=== PATIENT | female | born 1945 | race Caucasian/White ===

== ENCOUNTER 2021-04-11 14:35 | Outpatient (CLI) | payer MEDICARE, SELFPAY ==
--- NOTE | ~2021-04-11 | MM_ITS ---
EXAMINATION: MM screening [facility] BI w jarad HISTORY: Screening mammogram TECHNIQUE: Craniocaudal and mediolateral oblique 3-D tomosynthesis images were obtained and synthetic 2-D images were generated. CAD analysis was submitted and interpreted. COMPARISON: 09/19/2018, 09/13/2018, 01/24/2017 BREAST PARENCHYMAL COMPOSITION: There are scattered areas of fibroglandular density. FINDINGS: There is no evidence of suspicious mass, calcification, or architectural distortion to sugg est malignancy in either breast. There has been no suspicious interval change. IMPRESSION: 1. No mammographic evidence of malignancy. 2. Recommend routine screening mammography in one year. BI-RADS Category 1: Negative Reviewed, dictated and finalized at location A. ARY HISTORIAN
== END 2021-04-11 14:36 | disposition home or self-care (01) ==
LOC: ANHIMG 14:39
PROVIDERS: PCP Internal Medicine; Visit Provider Internal Medicine
DX: Z12.31 Encounter for screening mammogram for malignant neoplasm of breast (principal)
CPT/HCPCS: 77063; 77067

== ENCOUNTER → 2021-11-08 12:19 | Outpatient (CLI) | payer MEDICARE, SELFPAY ==
--- NOTE | ~2021-11-08 | MR_ITS ---
EXAMINATION: MR ankle RT wo con DATE: 11/08/2021 13:00 INDICATION: Right ankle pain TECHNIQUE: Magnetic resonance imaging (MRI) of the right ankle was performed without intravenous cont rast. Sequences included sagittal, coronal, and axial proton-density weighted fast spin echo without and with fat saturation. COMPARISON: None. FINDINGS: Medial ankle ligaments: Deep and superficial deltoid ligaments as well as the spring ligament are normal. Lateral ankle ligaments: The anterior and posterior inferior tibiofibular ligaments are normal. The anterior talofibular, calc aneofibular and posterior talofibular ligaments are normal. Tendons: Achilles tendon is normal. The peroneus longus and brevis tendons are normal. The tibialis anterior a nd extensor hallucis longus and extensor digitorum longus tendons are normal. The tibialis posterior, flexor digitorum longus and flexor hallucis longus tendons are normal. Plantar fascia: Tiny plantar calcaneal spur at the calcaneal origin of the normal-appearing plantar aponeurosis. Ther e is minimal edema in the surrounding soft tissues. Findings consistent with very mild acute on chron ic plantar fasciitis. Bones/other: Bone alignment is normal. Normal marrow signal with no reactive edema, fracture or pathologic marrow replacing process. Joint spaces are normal. There is soft tissue edema at the posterolateral aspect o f the ankle and distal calf which appears centered around the sural neurovascular bundle with some ed bianca also extending more medially into triggers fat pad. Fluid: Physiologic amount fluid in the joint spaces. No bursitis or other abnormal fluid collections. IMPRESSION: 1. Prominent soft tissue edema surrounding the seroma neurovascular bundle at the posterolateral aspe ct of the right ankle/distal calf. There is a nonspecific finding but raises possibility of thromboph lebitis. Reviewed, dictated and finalized at location A. IMPRESSION: 1. Prominent soft tissue edema surrounding the seroma neurovascular bundle at t he posterolateral aspect of the right ankle/distal calf. There is a nonspecific finding but raises possibility of thrombophlebitis.
== END ==
PROVIDERS: PCP Internal Medicine; Visit Provider Podiatrist Foot & Ankle Surgery
DX: M25.571 Pain in right ankle and joints of right foot (principal); M79.671 Pain in right foot
CPT/HCPCS: 73721

== ENCOUNTER → 2022-02-15 10:22 | Outpatient (CLI) | payer MEDICARE, SELFPAY ==
--- NOTE | ~2022-02-15 | CT_ITS ---
EXAMINATION: CT lumbar spine wo con DATE: 02/15/2022 10:39 INDICATION: Low back pain. TECHNIQUE: Computed tomography (CT) of the lumbar spine was performed without intravenous contrast. A utomated exposure control and iterative reconstruction technique were employed. The dose-length produ ct was 584.17 mGy-cm. COMPARISON: None FINDINGS: There is 10 mm anterolisthesis of L5 on S1. There are changes of anterior fusion procedure at L5-S1 with interbody device. There are changes of posterior fusion procedure from L4 to S1 with pe dicle screws. There is 3 mm retrolisthesis of L3 on L4. There is mild chronic height loss of L5 verte bral body. There is mildly decreased disc height at L1-L2 and moderately decreased disc height at L3- L4. The following disc levels are specifically discussed: L1-L2: The disc is bulging. There is mild bilateral facet joint osteoarthritis. There is mild bilater al neural foraminal stenosis. There is mild central canal stenosis. L2-L3: The disc is bulging. There is mild bilateral facet joint osteoarthritis. There is mild bilater al neural foraminal stenosis. There is mild central canal stenosis. L3-L4: The disc is bulging. There is mild bilateral facet joint hypertrophy. There is mild right and moderate left neural foraminal stenosis. There is mild central canal stenosis. L4-L5: The disc is bulging. There is no facet joint hypertrophy. There is mild bilateral neural munira inal stenosis. There is mild central canal stenosis with posterior decompression. L5-S1: There is mild bilateral facet joint hypertrophy. There is mild bilateral neural foraminal sten osis. There is no central canal stenosis. IMPRESSION: 1. Moderate lumbar spondylosis. 2. Anterior fusion procedure at L5-S1 and posterior fusion procedure from L4 to S1. Reviewed, dictated and finalized at location A.
== END ==
PROVIDERS: PCP Internal Medicine; Visit Provider Physical Medicine & Rehabilitation
DX: M47.896 Other spondylosis, lumbar region (principal); Z98.1 Arthrodesis status
CPT/HCPCS: 72131

== ENCOUNTER 2022-03-02 14:03 | Outpatient (CLI) | payer MEDICARE, SELFPAY ==
--- NOTE | ~2022-03-02 | DEXA_ITS ---
Bone Density Report Name: BRENDEN RUIZ Age: 76 Sex: Female Ethnicity: White Date of : 1945 Indication: postmenopausal; screening for osteoporosis; Referring Provider: HARLEY, HARJIT [place] Study: Bone densitometry was performed. Exam Date: March 02, 2022 Accession number: [id number] Bone Density: Region BMD T-score Z-score Classification AP Spine(L1, L2) 0.767 -1.9 0.4 Osteopenia Femoral Neck (Left) 0.572 -2.5 -0.3 Osteoporosis Total Hip (Left) 0.618 -2.7 -0.8 Osteoporosis Femoral Neck (Right) 0.612 -2.1 0.0 Osteopenia Total Hip (Right) 0.639 -2.5 -0.6 Osteoporosis Total Hip Mean 0.629 -2.6 -0.7 Osteoporosis World Health Organization criteria for BMD impression classify patients as: Normal (T-score at or above -1.0), Osteopenia (T-score between -1.0 and -2.5), or Osteoporosis (T-score at or below -2.5). 10-year Fracture Risk: FRAX not reported because: Some T-score for Spine Total or Hip Total or Femoral Neck at or below -2.5 Clinical Information Provided by Patient: Has used the following medications: Vitamin D, Calcium Patient maximum height was 65 Menopause Age: 50 Onset of menses at age 13 Number of children 0 Impression: The patient has osteoporosis, based on the Left Total Hip T-score. Discussion: INCREASED RISK OF FRACTURE. BONE DENSITY IS UNDESIRABLY LOW AT ONE OR MORE SKELETAL SITES, CONSISTENT WITH POSTMENOPAUSAL OSTEOPOROSIS. This patient's lowest T-score meets the World Health Organization's (WHO) criteria for osteoporosis at one or more sites (T-score -2.5 or below). In untreated patients, the risk of osteoporotic fracture increases approximately two-fold for each 1.0 SD decrease in T-score. Low bone density is not the only risk factor for fracture; also consider factors such as patient's age, frailty or poor health, risk of falling, risk of injury, previous osteoporotic fracture, family history of osteoporosis, cigarette smoking, low body weight, etc. Not everyone with low bone mineral density has osteoporosis; osteomalacia and other metabolic bone disorders should also be considered. Patients who have osteoporosis should be evaluated for specific diseases and conditions (secondary causes) that may cause or contribute to bone loss. The [place] Association of Clinical Endocrinologists (AACE) and National Osteoporosis Foundation (NOF) recommend pharmacologic intervention for all postmenopausal women whose T-score is in this range. The patient should follow a healthful lifestyle (good nutrition with adequate calcium and vitamin D, and appropriate weight-bearing exercise). Follow-Up: Consider a repeat BMD and Vertebral Fracture Assessment (VFA) exam in 2 years or sooner if medically necessary, to reassess this patient's status. Reported by: [facility] on 03/02/2022 2:32:00 PM
== END 2022-03-02 14:04 | disposition home or self-care (01) ==
PROVIDERS: PCP Internal Medicine; Visit Provider Internal Medicine
DX: Z78.0 Asymptomatic menopausal state (principal); M81.0 Age-related osteoporosis without current pathological fracture; M85.88 Other specified disorders of bone density and structure, other site
CPT/HCPCS: 77080

== ENCOUNTER → 2022-03-15 14:53 | Outpatient (CLI) | payer MEDICARE, SELFPAY ==
--- NOTE | ~2022-03-15 | MR_ITS ---
EXAMINATION: MR lumbar spine wo/w con DATE: 03/15/2022 16:07 INDICATION: Intervertebral disc disorder with radiculopathy of lumbar region. Low back pain. TECHNIQUE: Magnetic resonance imaging (MRI) of the lumbar spine was performed without and with 12 mL MultiHance intravenous contrast. COMPARISON: CT lumbar spine 02/15/2022 FINDINGS: There is 3 mm retrolisthesis of L3 on L4 and 9 mm anterolisthesis of L5 on S1. There are ch anges of anterior fusion procedure at L5-S1 with interbody device and healed interbody bone graft. Th ere are changes of posterior fusion procedure from L4 to S1 with pedicle screws. There is mild chroni c height loss of L5 vertebral body. There is mildly decreased disc height at L3-L4. The distal spinal cord signal intensity is normal. The conus medullaris is at L1-L2. The following disc levels are spe cifically discussed: L1-L2: The disc is bulging and has an annular fissure. There is mild right facet joint osteoarthritis . There is mild right and moderate left neural foraminal stenosis. There is mild central canal stenos is. L2-L3: The disc is bulging. There is mild bilateral facet joint osteoarthritis. There is mild bilater al neural foraminal stenosis. There is mild central canal stenosis. L3-L4: The disc is bulging and has an annular fissure. There is no facet joint hypertrophy. There is moderate bilateral neural foraminal stenosis. There is mild central canal stenosis. L4-L5: The disc does not extend beyond the endplate margin. There is mild bilateral facet joint hyper trophy. There is no neural foraminal stenosis. There is no central canal stenosis. L5-S1: There is no facet joint hypertrophy. There is no neural foraminal stenosis. There is no centra l canal stenosis. There is posterior decompression. IMPRESSION: 1. Moderate lumbar spondylosis. 2. Anterior fusion procedure at L5-S1 and posterior fusion procedure from L4 to S1. Reviewed, dictated and finalized at location B.
== END ==
PROVIDERS: PCP Internal Medicine
DX: M51.16 Intervertebral disc disorders with radiculopathy, lumbar region (principal); M47.896 Other spondylosis, lumbar region; Z98.1 Arthrodesis status
CPT/HCPCS: 72158; A9577

== ENCOUNTER → 2022-08-04 12:31 | Outpatient (CLI) | payer MEDICARE, SELFPAY ==
--- NOTE | ~2022-08-04 | MM_ITS ---
EXAMINATION: MM screening [facility] BI w jarad HISTORY: Screening mammogram TECHNIQUE: Craniocaudal and mediolateral oblique 3-D tomosynthesis images were obtained and synthetic 2-D images were generated. Bilateral rotated lateral CC views. CAD analysis was submitted and interp reted. COMPARISON: 04/11/2021 bilateral screening mammogram 09/19/2018 diagnostic right mammogram and limited right breast ultrasound examination 09/13/2018 bilateral screening mammogram BREAST PARENCHYMAL COMPOSITION: The breasts are heterogeneously dense, which may obscure small masses . FINDINGS: There is no evidence of suspicious mass, calcification, or architectural distortion to sugg est malignancy in either breast. There has been no suspicious interval change. IMPRESSION: 1. No mammographic evidence of malignancy. 2. Recommend routine screening mammography in one year. BI-RADS Category 1: Negative Reviewed, dictated and finalized at location B. RLOCKING INSTALLER
== END ==
PROVIDERS: PCP Internal Medicine; Visit Provider Internal Medicine
DX: Z12.31 Encounter for screening mammogram for malignant neoplasm of breast (principal)
CPT/HCPCS: 77063; 77067

== ENCOUNTER 2023-10-17 15:51 | Outpatient (CLI) | payer MEDICARE, SELFPAY ==
--- NOTE | ~2023-10-17 | MM_ITS ---
EXAMINATION: MM screening [facility] BI w jarad HISTORY: Screening TECHNIQUE: Craniocaudal and mediolateral oblique 3-D tomosynthesis images were obtained and synthetic 2-D images were generated. CAD analysis was submitted and interpreted. COMPARISON: Comparison to multiple prior studies sequentially, with oldest reviewed study dated 01/23. BREAST PARENCHYMAL COMPOSITION: Dense: The breasts are heterogeneously dense, which may obscure small masses FINDINGS: There is no evidence of suspicious mass, calcification, or architectural distortion to sugg est malignancy in either breast. There has been no suspicious interval change. IMPRESSION: 1. No mammographic evidence of malignancy. 2. Recommend routine screening mammography in one year. BI-RADS Category 1: Negative Reviewed, dictated and finalized at location A.
== END 2023-10-17 15:52 | disposition home or self-care (01) ==
LOC: ANHIMG 15:56
PROVIDERS: PCP Internal Medicine; Visit Provider Internal Medicine
DX: Z12.31 Encounter for screening mammogram for malignant neoplasm of breast (principal)
CPT/HCPCS: 77063; 77067

== ENCOUNTER 2024-11-07 15:51 | Outpatient (CLI) | payer MEDICARE, SELFPAY ==
--- NOTE | ~2024-11-07 | MM_ITS ---
EXAMINATION: MM screening britton BI w jarad HISTORY: Screening TECHNIQUE: Craniocaudal and mediolateral oblique 3-D tomosynthesis images were obtained and synthetic 2-D images were generated. CAD analysis was submitted and interpreted. COMPARISON: Comparison to multiple prior studies sequentially, with oldest reviewed study dated 01/24. BREAST PARENCHYMAL COMPOSITION: Dense: The breasts are heterogeneously dense, which may obscure small masses FINDINGS: There is no evidence of suspicious mass, calcification, or architectural distortion to sugg est malignancy in either breast. There has been no suspicious interval change. IMPRESSION: 1. No mammographic evidence of malignancy. 2. Recommend routine screening mammography in one year. BI-RADS Category 1: Negative Reviewed, dictated and finalized at location B.
--- OUTSIDE RECORDS SUMMARY | 2024-11-07 15:56 | XMS_ITS | Encounter Summary ---
Author Organization [facility] Address [address] [place] [address] Care Team Providers Care Physical Therapist Aide Name Role Phone Unavailable Primary Care Provider Unavailabl e Encounter Details Date Type Department Care Team (Late st Contact Info) Description 07/04/2023 Lab Requisition [facility] - DermPath Lab [address], [place]), [place] [address] MD [address] [facility] [facility] [address] [place] [address] Social History Tobacco Use Types Packs/Day Years Used Date Smoking Tobacco: Never Assessed Comments Unknown Sex and Gender Information Value Date Recorded Sex Assigned at Not on file Legal Sex Female 4:54 PM CDT Gender Identity Not on file Sexual Orientation Not on file documented as of this encounter Plan of Treatment Not on file documented as of this encounter Procedures Procedure Name Priority Date/Time Associated Diagnosis Comments DERMATOPATHOLOGY Routine 07/04/2023 1:27 PM 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 SKIN, left chest: BASAL CELL CARCINOMA, SUPERFICIAL MULTIFOCAL (C44.519) 4 11:21 AM S[employer] HORSE HITCH DRIVER DERMATOPATHOLOGY LABORATORY at [address] S[employer] H[employer]SE HITCH DRIVER Clinical History ISK vs SCC Irritated 11:21 AM [facility] DERMATOPATHOLOGY LABORATORY Gross Description Specimen A: Received is one formalin filled container labeled with the patient's name and designated left chest. The specimen consists of a shave biopsy measuring 5x4x1 mm. Jar 0. 11:21 AM [facility] DERMATOPATHOLOGY LABORATORY Microscopic Description Specimen A. SKIN, left chest: Attached to the undersurface of the epidermis, there are small aggregates of basaloid cells with a high nuclear to cytoplasmic ratio and peripheral palisading. 11:21 AM [facility] DERMATOPATHOLOGY LABORATORY Disclaimer An external and internal positive and negative controls are appropriate for the histochemical, immunohistochemical and immunofluorescence stain(s) in this case (if any), except where stated explicitly. The performance characteristics of the stain(s) cited in this report were developed and its performance characteristic determined by the Dermatopathology Laboratory at [facility], directed by Dr. Melissa Posey. These tests need not be, and therefore are not, approved by the [place] Food and Drug Administration. The tests are used for clinical purposes. Billing Codes Specimen Charges Stain Charges 67918 1 11:21 AM [facility] DERMATOPATHOLOGY LABORATORY Embedded Images 11:21 AM [facility] DERMATOPATHOLOGY LABORATORY Pathology/Cytolo gy TISSUE SPECIMEN FROM SKIN / Unknown 07/04/2023 1:27 PM S[employer] H[employer]SE HITCH DRIVER 07/05/2023 1:17 PM S[employer] H[employer]SE HITCH DRIVER Estephania Lane MD LAB - PATHOLOGY/CYTOLOGY OR DERABLES Final Result DERMATOPATHOLOGY LABORATORY [facility] - Department of Dermatology [address] [place] [address], [facility] [phone] documented in this encounter Visit Diagnoses Not on filedocumented in this encounter
--- OUTSIDE RECORDS SUMMARY | 2024-11-07 15:56 | XMS_ITS | Clinical Summary ---
Author Organization [facility] Address [address] [place] [address] Care Team Providers Care Cd Technician Name Role Phone Unavailable Primary Care Provider Unavailabl e Source Comments [facility],non-owned Affiliates and Associated Physician Practices is amultiple site organization consisting of ambulatory clinics and hospital sitesin [place], [place], [place] and [place]. This disclosure is being madepursuant to the Care Everywhere program and may not contain all information available regarding this patient. Last updated 18.[facility] [employer] Social History Tobacco Use Types Packs/Day Years Used Date Smoking Tobacco: Never Assessed Comments Unknown Sex and Gender Information Value Date Recorded Sex Assigned at Not on file Legal Sex Female 4:54 PM CDT Gender Identity Not on file Sexual Orientation Not on file Plan of Treatment Health Maintenance Due Date Last Done Comments BONE DENSITY TESTING 1945 DTAP/TDAP/TD VACCINES (1 - Tdap) 1964 PNEUMOCOCCAL VACCINE 50+ (1 of 1 - PCV) 1995 ZOSTER VACCINE (1 of 2) 1995 Respiratory Syncytial Virus (RSV) Vaccine Pt: or over 60 yrs (1 - 1-dose 75+ series) 2020 COVID-19 VACCINE ( - 2023-2 5 season) 2024 DEPRESSION SCREENING 05/28/2024 MEDICARE AWV CALENDAR YEAR 2024 INFLUENZA VACCINE (Season Ended) 2025 HEPATITIS B VACCINE Aged Out No longe r eligible based on patient's age to complete this topic HIB VACCINE Aged Out No longer eligi ble based on patient's age to complete this topic HPV VACCINE Aged Out No longer eligi ble based on patient's age to complete this topic MENINGOCOCCAL (Group B) VACC INE SHARED DECISION-MAKING Aged Out No longer eligibl e based on patient's age to complete this topic MENINGOCOCCAL GROUPS A/C/Y/W VACCINE Aged Out No longer eligible b ased on patient's age to complete this [place] [address] [employer] MANAGED MEDICARE ADV
--- OUTSIDE RECORDS SUMMARY | 2024-11-07 15:56 | XMS_ITS | Encounter Summary ---
Author Organization [facility] Address [address] [facility] [address] [place] [address] Care Team Providers Care Forensic Toxicologist Name Role Phone Unavailable Primary Care Provider Unavailabl e Encounter Details Date Type Department Care Team (Late st Contact Info) Description 04/21/2020 Lab Requisition [facility] DermPath Lab [address] [place] [id number] Gómez Warren MD [address] [place] [address] Social History Tobacco Use Types Packs/Day Years [...] Priority Date/Time Associated Diagnosis Comments DERMATOPATHOLOGY Routine 04/20/2020 12:0 0 AM MINE 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 SKIN, lower back: SPONGIOTIC DERMATITIS WITH EOSINOPHILS (L30.8) (see microscopic description and comment) 0 4:42 PM MINE ENGINEERING SUPERVISOR DERMATOPATHOLOGY LABORATORY at 1642 MINE ENGINEERING SUPERVISOR Clinical History ICD vs LSC vs other. Path#[id number] 0 4:42 PM MINE ENGINEERING SUPERVISOR DERMATOPATHOLOGY LABORATORY Gross Description Specimen A: Received is one formalin filled container labeled with the patient's name and designated lower back. The specimen consists of a shave biopsy measuring 7x7x1 mm. Jar 0. 0 4:42 PM [facility] DERMATOPATHOLOGY LABORATORY Microscopic Description Specimen A. SKIN, lower back: There is focal parakeratosis and spongiosis. In the dermis there is a mainly superficial perivascular lymphohistiocytic inflammatory infiltrate with eosinophils. Grocott's methenamine silver (GMS) stain fails to highlight fungal elements in the available sections. COMMENT: The histological differential diagnosis includes a contact dermatitis, an eczematous drug eruption, and less likely the urticarial phase of bullous pemphigoid. 0 4:42 PM [facility] DERMATOPATHOLOGY LABORATORY Disclaimer An external and internal positive and negative controls are appropriate for the histochemical, immunohistochemical and immunofluorescence stain(s) in this case (if any), except where stated explicitly. The performance characteristics of the stain(s) cited in this report were developed and its performance characteristic determined by the Dermatopathology Laboratory at [facility], directed by Dr. Melissa Posey. These tests need not be, and therefore are not, approved by the [place] Food and Drug Administration. The tests are used for clinical purposes. Billing Codes Specimen Charges Stain Charges 72085 1 49948 1 0 4:42 PM MINE ENGINEERING SUPERVISOR DERMATOPATHOLOGY LABORATORY Embedded Images 0 4:42 PM [facility] DERMATOPATHOLOGY LABORATORY Pathology/Cytolog y TISSUE SPECIMEN FROM SKIN / Unknown 04/20/2020 04/21/2020 6:37 AM MINE ENGINEERING SUPERVISOR us Gómez Warren MD LAB - PATHOLOGY/CYTOLOGY ORDER [place] Final Result DERMATOPATHOLOGY LABORATORY [facility] - Department of Dermatology [address] [place] [address], [facility] [place] [phone] documented in this encounter Visit Diagnoses Not on filedocumented in this encounter
--- OUTSIDE RECORDS SUMMARY | 2024-11-07 15:56 | XMS_ITS | Encounter Summary ---
Author Organization [facility] Address [address] [facility] [place] [address] Care Team Providers Care Plush Brusher Name Role Phone Unavailable Primary Care Provider Unavailabl e Encounter Details Date Type Department Care Team (Late st Contact Info) Description 10/23/2019 Lab Requisition [facility] [address] [place] [address] [place] [address] [place] [address] Social History Tobacco Use Types Packs/Day Years [...] Priority Date/Time Associated Diagnosis Comments DERMATOPATHOLOGY Routine 10/22/2019 12:0 0 AM CDT documented in this encounter Results * DERMATOPATHOLOGY (10/22/2019 12:00 AM CDT) Case Report Dermatopathology Report Case: [id number] Authorizing Provider: Radha Miranda MD Collected: 10/22/2019 12:00 AM Ordering Location: [facility] Received: 10/23/2019 09:42 AM Pathologist: Castillo Posey MD Specimen: Skin, right distal ulnar dorsal forearm 0 4:37 PM CDT DERMATOPATHOLOGY LABORATORY Final Diagnosis Specimen A. SKIN, right distal ulnar dorsal forearm: BENIGN VERRUCOUS KERATOSIS, INFLAMED (L82.1) 0 4:37 PM CDT DERMATOPATHOLOGY LABORATORY at 1636 CDT Clinical History Inflamed seborrheic keratosis vs squamous cell carcinoma. . 0 4:37 PM CDT DERMATOPATHOLOGY LABORATORY Gross Description Specimen A: Received is one formalin filled container labeled with the patient's name and designated right distal ulnar dorsal forearm. The specimen consists of a shave biopsy measuring [id number]. Jar 0. 0 4:37 PM CDT DERMATOPATHOLOGY LABORATORY Microscopic Description Specimen A. SKIN, right distal ulnar dorsal forearm: Sections show hyperkeratosis, papillomatosis, hypergranulosis, and acanthosis. Inflammatory cells are present within the dermis. These histological findings can be seen in a verruca vulgaris or a seborrheic keratosis. 0 4:37 PM CDT DERMATOPATHOLOGY LABORATORY Disclaimer An external and internal positive and negative controls are appropriate for the histochemical, immunohistochemical and immunofluorescence stain(s) in this case (if any), except where stated explicitly. The performance characteristics of the stain(s) cited in this report were developed and its performance characteristic determined by the Dermatopathology Laboratory at [facility], directed by Dr. Melissa Posey. These tests need not be, and therefore are not, approved by the [place] Food and Drug Administration. The tests are used for clinical purposes. Billing Codes Specimen Charges Stain Charges 47538 1 0 4:37 PM CDT DERMATOPATHOLOGY LABORATORY Embedded Images 0 4:37 PM CDT DERMATOPATHOLOGY LABORATORY Pathology/Cytolog y TISSUE SPECIMEN FROM SKIN / Unknown 10/22/2019 10/23/2019 9:42 AM CDT us Radha Miranda MD LAB - PATHOLOGY/CYTOLOGY ORDERABLES Final Result DERMATOPATHOLOGY LABORATORY [facility] - Department of Dermatology [employer] [place] [address], [facility] [phone] documented in this encounter Visit Diagnoses Not on filedocumented in this encounter
--- OUTSIDE RECORDS SUMMARY | 2024-11-07 15:56 | XMS_ITS | Patient Health Record ---
Author Organization [facility] Address [address] [place], [place] [id number] Care Team Providers Care Property Worker Name Role Phone FERMIN STAPLES Unavailable [phone] Kavitha Izquierdo Unavailable Unavailable Allergies Allergen (clinical drug ingredient) Drug/Non Drug Allergy documented on EMR Reaction Allergy Type Onset Date Status amoxicillin / clavulanate Augmentin Unknown Drug Allergy 10/30/2013 active Reason For Referral No Information Medications Medication SIG (Take, Route, Frequency, Duration) Notes Start Date End Date Status traMADol HCl 50 MG Oral for 28 Days Active Rosuvastatin Calcium 5 MG Oral for 90 Days Active Medrol Dosepak ORAL Medrol DosepakOr iginal MedicationMedrol Dosepak *Reorder from [email or web address] for eRx and Interaction Alerts* 10/19/2021 Active urea 400 MG/ML Topical Cream CUTANEOUS urea 400 MG/ML Topical CreamOriginal Medicationurea 400 MG/ML Topical Cream *Reorder from [email or web address] for eRx and Interaction Alerts* 07/08/2014 Active Immunizations Vaccine Route Administration Date Status Comme nts Pneumococcal conjugate PCV 13 Unknown 08/11/2024 Admini stered Vital Signs Height-cm 165.10 cm 08/11/2024 Weight-kg 65.77 kg 08/11/2024 Height 65.00 in 08/11/2024 Weight 145 lbs 08/11/2024 BMI 24.13 kg/m2 08/11/2024 Encounters Encounter Location Date Provider Diagnosis [facility] [address] [place], [place] [id number] 11/12/2023 FERMIN SNOOK Tinea unguium B35.1 ; Pain in right toe(s) M79.674 ; Pain in left toe(s) M79.675 and Atherosclerosis of [place] arteries of extremities with intermittent claudication, bilateral legs I70.213 [facility] [address] [place] [id number] 02/11/2024 FERMIN SNOOK Tinea unguium B35.1 ; Pain in right toe(s) M79.674 ; Pain in left toe(s) M79.675 and Atherosclerosis of [place] arteries of extremities with intermittent claudication, bilateral legs I70.213 [facility] [address] [place] [id number] 05/12/2024 FERMIN SNOOK Tinea unguium B35.1 ; Ingrowing nail L60.0 and Pain in right toe(s) M79.674 [facility] [place] [address] [place] [id number] 08/11/2024 FERMIN SNOOK Tinea unguium B35.1 ; Pain in right toe(s) M79.674 ; Pain in left toe(s) M79.675 and Atherosclerosis of [place] arteries of extremities with intermittent claudication, bilateral legs I70.213 Assessments Encounter Date Diagnosis (ICD Code) Assessment Notes Treatment Notes Treatment Clinical Notes Section Notes 11/12/2023 Tinea unguium (ICD-10 - B35.1) FUNGAL TOENAILS: Discussed various treatment options for fungal toenails including debridement, topical antifungals, oral antifungals, toenail avulsion, or toenail matrixectomy. NAIL DEBRIDEMENT: Nails 1-5 Bilateral were debrided extensively with nail nippers and emery board, reducing length and girth to pink healthy tissue with any subungual debris and necrotic tissue removed 11/12/2023 Pain in right toe(s) (ICD-10 - M79.674) 02/11/2024 Tinea unguium (ICD-10 - B35.1) FUNGAL TOENAILS: Discussed various treatment options for fungal toenails including debridement, topical antifungals, oral antifungals, toenail avulsion, or toenail matrixectomy. NAIL DEBRIDEMENT: Nails 1-5 Bilateral were debrided extensively with nail nippers and emery board, reducing length and girth to pink healthy tissue with any subungual debris and necrotic tissue removed 02/11/2024 Pain in right toe(s) (ICD-10 - M79.674) 05/12/2024 Tinea unguium (ICD-10 - B35.1) FUNGAL TOENAILS: Discussed various treatment options for fungal toenails including debridement, topical antifungals, oral antifungals, toenail avulsion, or toenail matrixectomy. 05/12/2024 Ingrowing nail (ICD-10 - L60.0) Slant Back Toenail: Following skin prep, the offending nail border was debrided without anesthesia. The patient was instructed on monitoring for infection or recurrence. 08/11/2024 Tinea unguium (ICD-10 - B35.1) FUNGAL TOENAILS: Discussed various treatment options for fungal toenails including debridement, topical antifungals, oral antifungals, toenail avulsion, or toenail matrixectomy. NAIL DEBRIDEMENT: Nails 1-5 Bilateral were debrided extensively with nail nippers and emery board, reducing length and girth to pink healthy tissue with any subungual debris and necrotic tissue removed 08/11/2024 Pain in right toe(s) (ICD-10 - M79.674) 08/11/2024 Pain in left toe(s) (ICD-10 - M79.675) 05/12/2024 Pain in right toe(s) (ICD-10 - M79.674) 02/11/2024 Pain in left toe(s) (ICD-10 - M79.675) 11/12/2023 Pain in left toe(s) (ICD-10 - M79.675) 11/12/2023 Atherosclerosis of [place] of extremities with intermittent claudication, bilateral legs (ICD-10 - I70.213) 02/11/2024 Atherosclerosis of [place] of extremities with intermittent claudication, bilateral legs (ICD-10 - I70.213) 08/11/2024 Atherosclerosis of [place] arteries of extremities with intermittent claudication, bilateral legs (ICD-10 - I70.213) Plan Of Treatment Next Appt Details Provider Name:FERMIN STAPLES, 06 / 01:00:00 PM, [address], [place], [place], [id number], Insurance Providers Payer Name Payer Address Payer Phone Subscriber Number Group Number Insured Name Patient Relationship to Insured Coverage Start Date Coverage End Date [facility] [address] [address] [place] [address] [id number] BRENDEN RUIZ Self - patient is the insured Medical (General) History Medical History History ICD Code Back Trouble Thyroid Disease neuropathy Surgical History Surgery Date(Month/Year) spinal fusion 2013 Gall Bladder 1999
--- OUTSIDE RECORDS SUMMARY | 2024-11-07 15:56 | XMS_ITS | Clinical Summary ---
Author Organization [facility] Address [address] [place] [address] Care Team Providers Care Ic Design Engineer Name Role Phone Kavitha Izquierdo MD Primary Care Provider + Tony Colón MD Unavailable [phone] Allergies Active Allergy Reactions Criticality Noted Date Comments Amoxicillin-Pot Clavulanate Other (See comments) 01/14/2014 Reaction: YEAST INFECTION, Clarithromycin Cyclobenzaprine Hcl Unknown 11/13/2015 Piroxicam Hives Reaction: HIVES, Medications ALPRAZolam (XANAX) 0.25 mg tablet Take 1 tablet (0.25 mg total) by mouth nightly 5 8 Active levothyroxine (SYNTHROID) 50 mcg tablet Take 1 tablet (50 mcg total) by mouth record press tender before breakfast Active amLODIPine (NORVASC) 5 mg tablet Take 1 tablet (5 mg total) by mouth daily Active traMADoL (ULTRAM) 50 mg tablet Take 1 tablet (50 mg total) by mouth every 6 (six) hours as needed for pain Active cyanocobalamin (Vitamin B-12) 1,000 mcg tabletIndicati ons:Prevention of Vitamin B12 Deficiency Take 1 tablet (1,000 mcg total) by mouth daily Active vitamin D3-vitamin K2 1000-90 unit-mcg tablet,disinte grating Take by mouth 1000 international units daily Active tacrolimus (PROTOPIC) 0.1 % ointment 0 Active clobetasoL (TEMOVATE) 0.05 % external solution as needed 0 Active erythromycin (PCE) 500 mg EC tablet Take 1 tablet (500 mg total) by mouth 4 (four) times a day Active cyclobenzaprin e (FLEXERIL) 5 mg tablet Take 1 tablet (5 mg total) by mouth daily as needed for muscle spasms Active calcium-minera iy-J6-Q9-silic on 200 mg calcium- 200 unit tablet Take by mouth Acti ve docusate sodium (COLACE) 100 mg capsuleIndicat ions:constipat ion Take 1 capsule (100 mg total) by mouth 2 (two) times a day Active simethicone (GAS-X) 125 mg capsule Take 1 capsule (125 mg total) by mouth daily as needed for flatulence Active vitamin A-vit C-vit E-zinc-Cu tablet Take by mouth Active carboxymethylc ellulose (REFRESH TEARS) 0.5 % ophthalmic solution Administer 1 drop into both eyes as needed Active rosuvastatin (CRESTOR) 5 mg tablet 1 tablet (5 mg total) 4 Active Active Problems Problem Noted Date Diagnosed Date Tinnitus of both ears 01/24/2024 Assessment & Plan (01/24/2024 7:54 AM CDT): I talked with the patient about tinnitus. Typically it is due to hearing loss but there are other potential reasons for it. It can occur due to cervical strain or TMJ disorder. Also potentially due to tumors which are usually benign. Unfortunately there is no widely accepted or successful treatment for it. There are a lot of zpid-lwg-peggsqb remedies which generally do not help and I really do not recommend any of them. I think in her case the tinnitus is likely due to her high-frequency sensorineural hearing loss. The sensorineural hearing loss really does not warrant hearing aids at this point although they would be helpful if needed. I talked with her about that. Sometimes using the eardrops can quiet the tinnitus and there are lrgt-nkp-cbzwflk eardrops for this. I recommended possibly trying that although I did not highly endorse it. It would be nice if it was helpful however. She understands. She will give it a try. She had no questions. Sensorineural hearing loss (SNHL) of both ears 0 01/24/2024 Assessment & Plan (01/24/2024 7:55 AM CDT): She has a high-frequency sensorineural hearing loss on both sides and this is relatively unchanged from her prior audiogram. I do not think that it is enough to warrant amplification we talked about that. She also does not feel like she is having any hearing difficulty. I really had no further recommendations. She can follow up for an audiogram as needed. Globus sensation 04/22/2023 Assessment & Plan (04/22/2023 6:33 PM DELIVERY COORDINATOR): I reassured her that her throat looks okay. There is some edema of the posterior larynx which I think is the lump that she feels. This is likely due to reflux. I do not find anything worrisome. She understands. Laryngopharyngeal reflux 04/22/2023 Assessment & Plan (04/22/2023 6:33 PM DELIVERY COORDINATOR): We discussed laryngopharyngeal reflux disease. It could be causing these symptoms. It can be improved through dietary management and we talked about various dietary changes to consider. Also discussed aggressive treatment through twice a day proton pump inhibitors. I also provided some literature regarding this type of reflux and this included instructions on dietary management. We also discussed the potential long-term side effects of proton pump inhibitors including liver and kidney disease and increased risk of dementia. I do not intend to continue treatment with this medication indefinitely unless there was no other way to get the symptoms under control and the patient wishes to continue taking them. She really does not have significant GERD symptoms. Overall I recommended conservative management by watching her diet and taking reflux medication for GERD type symptoms. I did ask her to follow up with me if she has worsening problems however. She understands. Intervertebral disc disorder with radiculopathy of lumbar region 02/22/2022 Assessment & Plan (02/22/2022 2:07 PM CDT): Ms. Ruiz has low back/bilateral SI pain with bilateral posterior leg pain and subjective weakness. Reviewed her CT lumbar spine which shows instrumentation is intact, bone bridging is seen, no evidence of lucency surrounding the instrumentation. Other levels do not demonstrate any significant spinal canal stenosis. No surgery is warranted at this time. Discussed possibility of pain management to include injection therapy possibly at L5-S1 and or SI joint injections. We also discussed physical therapy for core and lower extremity strengthening exercises. Will discuss the above findings with Dr. Vogel as well if any further treatment is warranted. CT lumbar spine will be downloaded into [employer] and mailed back to the patient. IBS (irritable bowel syndrome) 11/04/2019 Abdominal pain 11/04/2019 Essential hypertension 11/04/2019 Mild malnutrition 11/04/2019 Vitamin D deficiency 10/11/2013 Overview (08/30/2016): VITAMIN D DEFICIENCY NOS Impaired fasting glucose 10/11/2013 Overview (08/30/2016): IMPAIRED FASTING GLUCOSE Osteoporosis 10/11/2013 Overview (08/30/2016): OSTEOPOROSIS NOS Hypothyroidism 10/11/2013 Overview (08/30/2016): HYPOTHYROIDISM NOS Surgical History Surgery Date Site/Laterality Comments CHOLECYSTECTOMY 05/28/1999 - 05/27/2000 Cholecystectomy SPINAL FUSION Medical History Medical History Date Comments Disorder of thyroid Thyroid dise ase Osteoporosis Osteoporosis Sinusitis IBS (irritable bowel syndrome) Diabetes (HCC) GERD (gastroesophageal reflux disease) Anxiety Depression Eczema Hypertension Tinnitus Dizziness Spinal stenosis Neuropathy Acid reflux Family History Medical History Relation Name Comments COPD Father Diabetes Mother Diabetes type II Mother Heart disease Mother Broken bones Other Diabetes type II Other Family hist ory of Diabetes -Type II; Heart disease Other Hip fracture Other Hypertension Other Kyphosis Other Osteoporosis Other Scoliosis Other Relation Name Status Comments Father Mother Other Social History Tobacco Use Types Packs/Day Years Used Date Smoking Tobacco: Never Smokeless Tobacco: Never Tobacco Cessation:Counseling Given: Not Answered Alcohol Use Standard Drinks/Week Comments No 0 (1 standard drink = 0.6 oz pur e alcohol) AUDIT-C Answer Date Recorded Q1: How often do you have a drink containing alc ohol? Monthly or less 02/22/2022 Q2: How many drinks containi ng alcohol do you have on a typical day when you are drinking? 1 or 2 02/22/2022 Q3: How often do you have si x or more drinks on one occasion? Never 02/22/2022 PHQ-2 Answer Date Recorded PHQ-2 Total Score (If total score is 3 or more points, staff should administer the PHQ-9) 0 02/22/2022 Comments Unknown Sex and Gender Information Value Date Recorded Sex Assigned at Not on file Legal Sex Female 12:00 AM DELIVERY COORDINATOR Gender Identity Not on file Sexual Orientation Not on file Obstetrics History Last Filed Vital Signs Vital Sign Reading Time Taken Comments Blood Pressure 185/68 07/12/2023 11:37 AM DELIVERY COORDINATOR Pulse 90 07/12/2023 11:37 AM DELIVERY COORDINATOR Temperature 35.3 C (95.6 F) 07/12/2023 11:37 AM DELIVERY COORDINATOR Respiratory Rate 18 01/23/2024 3:43 PM CDT Oxygen Saturation 96% 07/12/2023 11:37 AM DELIVERY COORDINATOR Inhaled Oxygen Concentration - - Weight 59.7 kg (131 lb 9.6 oz) 07/15/2024 12:35 PM DELIVERY COORDINATOR Height 165.1 cm (5' 5) 07/15/2024 12:35 PM DELIVERY COORDINATOR Body Mass Index 21.9 07/15/2024 12:35 PM DELIVERY COORDINATOR Plan of Treatment Health Maintenance Due Date Last Done Comments Hepatitis C Screening 1945 DTaP/Tdap/Td Vaccine (1 - Tdap) 1956 Hepatitis B Screening 1963 Zoster Vaccine (1 of 2) 1995 Well Visit 65+ 2010 Fall Risk Assessment 11/04/2020 11/05/2019 Depression Screening 02/22/2023 02/22/2022, 02/23/20 22 Osteoporosis Screening-Bone Density Scan 07/15/2026 07/15/2024, 06/20/2023, 01/03/2021, Additional history exists Pneumococcal vaccine 65+ Completed 023, 07/30/2018, 04/30/2017 Influenza Vaccine Completed 02/01/2024, , 02/25/2018, Additional history exists Procedures Procedure Name Priority Date/Time Associated Diagnosis Comments DEXA TBS AXIAL SKELETON BONE DENSITY 1 OR MORE SITES Schedule Routine, Read Routine (OP Routine) 07/15/2024 12:38 PM DELIVERY COORDINATOR Age-related osteoporosis without current pathological fracture from Last 3 Months or Most Recently Relevant to Health Maintenance Results * Dexa TBS Axial Skeleton Bone Density 1 or more sites (07/15/2024 12:38 PM DELIVERY COORDINATOR) Anatomical Region Laterality Modality Wrist, Body N/A Radiographic Shirin ging Narrative 07/25/2024 2:42 PM DELIVERY COORDINATOR Patient Name: Estephania Ruiz Date of : 1945 Date of scan: 07/15/2024 Bone mineral density was performed on a [employer] Discovery Densitometer. Based on machine cross-calibration and precision studies the least significant changes of this densitometer is 0.024 g/cm2 at the spine, 0.020 g/cm2 at the total proximal femur, and 0.014g/cm2 at the forearm. HISTORY: This is a 79 y.o. postmenopausal female with a history of osteoporosis, thyroid disease, and vitamin D deficiency. She reports that she has never smoked. She has never used smokeless tobacco. Currently on treatment with calcium, vitamin D, and thyroid hormone, previously treated with alendronate (Fosamax), ibandronate (Boniva), and zoledronic acid (Reclast), and current complaint of back pain. INDICATIONS: Menopause status, vitamin D deficiency, and history of osteoporosis. FINDINGS: BONE MINERAL DENSITY OF THE LUMBAR SPINE Bone Mineral Density (BMD) of the lumbar spine was measured from L1-L3 and the average density was calculated to be 0.888 gm/cm2. This corresponds to a T-score (standard deviations from the mean of young adults) of -1.2. When compared to the previous study of 06/20/2023 there has been a 0.036 gm/cm (4.3%) increase in bone density that is considered significant. BONE MINERAL DENSITY OF THE PROXIMAL FEMUR Bone Mineral Density (BMD) of the left hip total was found to be 0.669 gm/cm2. This corresponds to a T-score standard deviations from the mean of young adults of -2.2. Femoral neck is 0.592 gm/cm2 with a T-score (standard deviations from the mean of young adults) of -2.3. When compared to the previous study of 06/20/2023 there has been no significant changes in bone density. SUMMARY: Bone mineral density shows evidence of low bone mass at the lumbar spine and proximal femur and moderately increased fracture risk (Osteopenia). There has been a significant increase in bone density since previous measurement. L4 excluded from bone mineral density analysis of the lumbar spine due to the presence of surgical hardware. The lumbar spine Trabecular Bone Score is 1.307 which suggests normal bone microarchitecture, compared to the general population. Final decisions regarding diagnostic or therapeutic recommendations should include BMD, TBS, additional clinical risk factors as well the clinical context of the patient. Please see attached TBS results for further details. ADDITIONAL COMMENTS: Postmenopausal Women and Men Over 50: Diagnostic criteria: Osteoporosis: BMD at or below -2.5 T-score; Osteopenia (low bone mass): BMD between -1.0 and -2.5 T-score. If the patient has a history of a fragility fracture, a fracture that occurred with trauma equivalent to a fall from a standing position or less, then the diagnosis is osteoporosis regardless of bone density. The history and data sections of the bone mineral density scan were prepared by Virginia Granados (R)(CBDT) who is accredited by the International Society of Clinical Densitometry. The overall patient assessment and scan interpretation were performed by Mamie Ortez M.D. who is certified by the International Society of Clinical Densitometry. [id number] Sheyla Deleon [facility] DXA PROCEDURES Final Result from Last 3 Months or Most Recently Relevant to Health Maintenance Insurance MEDICARE [facility] [employer] [facility] [employer] Member Subscriber Plan / Payer (Ef fective 2023-Present) Name:Estephania Ruiz Relation to Subscriber:Self Name:Estephania Ruiz Payer ID:[id number] (NAIC) Type:[facility] [employer] Address: [place] [phone] Advance Directives For more information, please contact: [phone] * Full Code (Latest Code Status on File) Date Activated Date Inactivated Comments 11/03/2019 7:43 PM 11/05/2019 4:37 PM Care Teams Ic Design Engineer Relationship Specialty Start Date End Date Kavitha Izquierdo MD PCP - General Internal Medicine 09/25/18 [place]ón [place] [id number] [place] [address] Consulting Physician Gastroenterology 11/05/19
--- OUTSIDE RECORDS SUMMARY | 2024-11-07 15:56 | XMS_ITS | Encounter Summary ---
Author Organization [facility] Address [address] [place] [address] Phone Care Team Providers Care Drilling Rig Operator Name Role Phone Kavitha Izquierdo MD Primary Care Provider + Tony Colón MD Unavailable [phone] Encounter Details Date Type Department Care Team (Late st Contact Info) Description 05/04/2022 Treatment [facility] [address] [facility] [address] [place] [address] Sheyla Deleon, LEILANI [address] [facility] [address] [place] [address] Age-related osteoporosis without current pathological fracture (Primary Dx) Social History Tobacco Use Types Packs/Day Years Used Date Smoking Tobacco: Never Smokeless Tobacco: Never Alcohol Use Standard Drinks/Week Comments No 0 [...] on file Legal Sex Female 12:00 AM LOOM CHANGER Gender Identity Not on file Sexual Orientation Not on file documented as of this encounter Plan of Treatment Not on file documented as of this encounter Visit Diagnoses Diagnosis Age-related osteoporosis without current pathological fracture- Primary documented in this encounter Orders Appointment Requests Count Last Ordered Date Fi rst Ordered Date INFUSION APPT REQUEST 60 MIN 1 05/17/2022 documented in this encounter Care Teams Drilling Rig Operator Relationship Specialty Start Date End Date Kaivtha Izquierdo MD PCP - General Internal Medicine 09/25/18 [place] [address] [place] [address] Consulting Physician Gastroenterology 11/05/19 documented as of this encounter
--- OUTSIDE RECORDS SUMMARY | 2024-11-07 15:56 | XMS_ITS | Referral Summary ---
Author Organization [facility] Address [address] [place] [address] Care Team Providers Care Chain Mortiser Operator Name Role Phone Kavtiha Izquierdo MD Primary Care Provider + Tony Colón MD Unavailable [phone] Allergies Active Allergy Reactions Criticality Noted Date Comments Amoxicillin-Pot Clavulanate Other (See comments) 01/14/2014 Reaction: YEAST INFECTION, Clarithromycin Cyclobenzaprine Hcl Unknown 11/13/2015 Piroxicam Hives Reaction: HIVES, Medications ALPRAZolam (XANAX) 0.25 mg tablet Take 1 tablet (0.25 mg total) by mouth nightly 5 8 Active levothyroxine (SYNTHROID) 50 mcg tablet Take 1 tablet (50 mcg total) by mouth banana carrier before breakfast Active amLODIPine (NORVASC) 5 mg [...] as needed for muscle spasms Active calcium-minera px-H4-T2-silic on 200 mg calcium- 200 unit tablet [...] for it. There are a lot of bvvj-vgv-mzpbgxs remedies which generally do not help and [...] can quiet the tinnitus and there are elyy-wvk-qgjupef eardrops for this. I recommended possibly trying [...] 04/22/2023 Assessment & Plan (04/22/2023 6:33 PM BOWLING OR SKATING FRONT DESK CLERK): I reassured her that her throat looks okay. There is some edema of the posterior larynx which I think is the lump that she feels. This is likely due to reflux. I do not find anything worrisome. She understands. Laryngopharyngeal reflux 04/22/2023 Assessment & Plan (04/22/2023 6:33 PM BOWLING OR SKATING FRONT DESK CLERK): We discussed laryngopharyngeal reflux disease. It could [...] CT lumbar spine will be downloaded into [employer] and mailed back to the patient. IBS (irritable bowel syndrome) 11/04/2019 Abdominal pain 11/04/2019 Essential hypertension 11/04/2019 Mild malnutrition 11/04/2019 Vitamin D deficiency 10/11/2013 Overview (08/30/2016): VITAMIN D DEFICIENCY NOS Impaired fasting glucose 10/11/2013 Overview (08/30/2016): IMPAIRED FASTING GLUCOSE Osteoporosis 10/11/2013 Overview (08/30/2016): OSTEOPOROSIS NOS Hypothyroidism 10/11/2013 Overview (08/30/2016): HYPOTHYROIDISM NOS Social History Tobacco Use Types Packs/Day Years [...] on file Legal Sex Female 12:00 AM BOWLING OR SKATING FRONT DESK CLERK Gender Identity Not on file Sexual Orientation Not on file Last Filed Vital Signs Vital Sign Reading Time Taken Comments Blood Pressure 185/68 07/12/2023 11:37 AM BOWLING OR SKATING FRONT DESK CLERK Pulse 90 07/12/2023 11:37 AM BOWLING OR SKATING FRONT DESK CLERK Temperature 35.3 C (95.6 F) 07/12/2023 11:37 AM BOWLING OR SKATING FRONT DESK CLERK Respiratory Rate 18 01/23/2024 3:43 PM CDT Oxygen Saturation 96% 07/12/2023 11:37 AM BOWLING OR SKATING FRONT DESK CLERK Inhaled Oxygen Concentration - - Weight 59.7 kg (131 lb 9.6 oz) 07/15/2024 12:35 PM BOWLING OR SKATING FRONT DESK CLERK Height 165.1 cm (5' 5) 07/15/2024 12:35 PM BOWLING OR SKATING FRONT DESK CLERK Body Mass Index 21.9 07/15/2024 12:35 PM BOWLING OR SKATING FRONT DESK CLERK Plan of Treatment Not on file Procedures Procedure Name Priority Date/Time Associated Diagnosis Comments DEXA TBS AXIAL SKELETON BONE DENSITY 1 OR MORE SITES Schedule Routine, Read Routine (OP Routine) 07/15/2024 12:38 PM BOWLING OR SKATING FRONT DESK CLERK Age-related osteoporosis without current pathological fracture from Last 3 Months or Most Recently Relevant to Health Maintenance Results * Dexa TBS Axial Skeleton Bone Density 1 or more sites (07/15/2024 12:38 PM BOWLING OR SKATING FRONT DESK CLERK) Anatomical Region Laterality Modality Wrist, Body N/A Radiographic Shirin ging Narrative 07/25/2024 2:42 PM BOWLING OR SKATING FRONT DESK CLERK Patient Name: Estephania Ruiz Date of : 1945 Date of scan: 07/15/2024 Bone mineral density was performed on a [employer] Densitometer. Based on machine cross-calibration and [...] by the International Society of Clinical Densitometry. [id number] Sheyla Deleon [facility] DXA PROCEDURES Final Result from Last 3 Months or Most Recently Relevant to Health Maintenance Insurance MEDICARE [facility] MEDICARE ADVANTAGE [facility] MEDICARE ADVANTAGE Advance Directives For more information, please contact: [phone] * Full Code (Latest Code Status on File) Date Activated Date Inactivated Comments 11/03/2019 7:43 PM 11/05/2019 4:37 PM Care Teams Chain Mortiser Operator Relationship Specialty Start Date End Date Kavitha Izquierdo MD PCP - General Internal Medicine 09/25/18 [place]ón [place] [address] [place] [address] Consulting Physician Gastroenterology 11/05/19
== END 2024-11-07 15:52 | disposition home or self-care (01) ==
LOC: ANHIMG 15:54
PROVIDERS: PCP Internal Medicine; Visit Provider Internal Medicine
DX: Z12.31 Encounter for screening mammogram for malignant neoplasm of breast (principal)
CPT/HCPCS: 77063; 77067

== ENCOUNTER 2025-02-27 08:32 | Outpatient (CLI) | payer MEDICARE, SELFPAY ==
--- OUTSIDE RECORDS SUMMARY | 2025-02-09 08:20 | XMS_ITS ---
Author Organization [facility] Address [address] [place], [place] [id number] Care Team Providers Care Federal Mediator Name Role Phone FERMIN STAPLES Unavailable [phone] Kavitha Izquierdo Unavailable Unavailable Allergies Allergen (clinical drug ingredient) Drug/Non Drug Allergy documented on EMR Reaction Allergy Type Onset Date Status amoxicillin / clavulanate Augmentin Unknown Drug Allergy 10/30/2013 active REASON FOR VISIT Patient presents for at-risk foot care . The patient has painful toenails that cause difficulty with ambulation and shoegear. The onset is gradual Medications Medication SIG (Take, Route, Frequency, Duration) Notes Start Date End Date Status urea 400 MG/ML Topical Cream CUTANEOUS urea 400 MG/ML Topical CreamOriginal Medicationurea 400 MG/ML Topical Cream *Reorder from [employer] for eRx and Interaction Alerts* 07/08/2014 Not-Taking Medrol Dosepak ORAL Medrol DosepakOriginal MedicationMedrol Dosepak *Reorder from [employer] for eRx and Interaction Alerts* 10/19/2021 Not-Taking traMADol HCl 50 MG Oral; Duration: 28 Days Active Crestor 5 MG 1 tablet Orally Once a day Active Synthroid 50 MCG 1 tablet in the morning on an empty stomach Orally Once a day Active Erythromycin 500 MG as directed Orally Active Xanax 0.25 MG 1 tablet Orally Twice a day Active Rosuvastatin Calcium 5 MG Oral; Duration: 90 Days Not-Taking Vital Signs Height 65.00 in 02/09/2025 Weight 132 lbs 02/09/2025 BMI 21.96 kg/m2 02/09/2025 Height-cm 165.10 cm 02/09/2025 Weight-kg 59.87 kg 02/09/2025 Encounters Encounter Location Date Provider Diagnosis [facility] [address] [place], [place] [id number] 02/09/2025 FERMIN STAPLES Tinea unguium B35.1 ; Pain in right toe(s) M79.674 ; Pain in left toe(s) M79.675 and Atherosclerosis of confederated salish arteries of extremities with intermittent claudication, bilateral legs I70.213 Assessments Encounter Date Diagnosis (ICD Code) Assessment Notes Treatment Notes Treatment Clinical Notes Section Notes 02/09/2025 Tinea unguium (ICD-10 - B35.1) FUNGAL TOENAILS: Discussed various treatment options for fungal toenails including debridement, topical antifungals, oral antifungals, toenail avulsion, or toenail matrixectomy. NAIL DEBRIDEMENT: Nails 1-5 Bilateral were debrided extensively with nail nippers and emery board, reducing length and girth to pink healthy tissue with any subungual debris and necrotic tissue removed 02/09/2025 Pain in right toe(s) (ICD-10 - M79.674) 02/09/2025 Pain in left toe(s) (ICD-10 - M79.675) 02/09/2025 Atherosclerosis of confederated salish arteries of extremities with intermittent claudication, bilateral legs (ICD-10 - I70.213) Plan Of Treatment Treatment Notes Assessment Notes Tinea unguium FUNGAL TOENAILS: Discussed various treatment options for fungal toenails including debridement, topical antifungals, oral antifungals, toenail avulsion, or toenail matrixectomy. NAIL DEBRIDEMENT: Nails 1-5 Bilateral were debrided extensively with nail nippers and emery board, reducing length and girth to pink healthy tissue with any subungual debris and necrotic tissue removed Next Appt Details Follow Up: 10-12 Weeks, Reas on: At Risk Foot care, sooner if problems arise Provider Name:FERMIN STAPLES, 01:20:00 PM, [address], [place], [place], [id number], Progress Notes * BRENDEN RUIZ KDOB: [birth year] (79 yo F)Acc No.[id number]:02/09/2025 Patient: BRENDEN SANON Provider: Snehal Staples DPM :1945 A ge:79 Y S ex:Female Date:02/09/2025 Address:[address] [place] [address] , [place], [id number] Subjective: * Chief Complaints: * 1 . Patient presents for at-risk foot care . The patient has painful toenails that cause difficulty with ambulation and shoegear. The onset is gradual. * HPI: H PI: General care P atient presents to the office for at risk foot care. Patient states that their nails are thickened, elongated and painful. Patient states that it is aggravated by shoe gear. Onset is gradual. Patient denies being diabetic., Patient denies taking blood thinners., Date last seen by Dr. Izquierdo was September 2024., Initials IR. sample. * ROS: G eneral / Constitutional: Patient denies c hills, fever, weakness, night sweats. M usculoskeletal: Patient denies c hildhood foot problems, weakness. ? P eripheral Vascular: Patient denies u lceration of feet, cold extremities. ? S kin: Patient denies u lcerations, discoloration. P atient complains of n ail changes, calluses and corns. N eurologic: Patient denies b alance difficulty, confusion, difficulty speaking, dizziness. * Medical History: B ack Trouble, Thyroid Disease, Neuropathy. * Surgical History: s karly fusion 2013, Gall Bladder 1999. * Family History: F ather: PRN - Father: . M other: PRN - Mother: :: Heart Disease < 55 yrs,,known absent , :: Diabetes,,known absent . B rother: SIB - Brother: . * Social History: M igrated Social History: M igrated Social History: Smoking Status : Never smoked , Alcohol intake : , History of tobacco use :. * Medications: T aking Xanax 0.25 MG Tablet 1 tablet Orally Twice a day , Taking Erythromycin 500 MG Tablet Delayed Release as directed Orally , Taking Synthroid 50 MCG Tablet 1 tablet in the morning on an empty stomach Orally Once a day , Taking Crestor 5 MG Tablet 1 tablet Orally Once a day , Taking traMADol HCl 50 MG Tablet Oral , Not-Taking Medrol Dosepak ORAL , Notes to Pharmacist: Medrol DosepakOriginal MedicationMedrol Dosepak *Reorder from [facility] for eRx and Interaction Alerts*, Not-Taking urea 400 MG/ML Topical Cream CUTANEOUS , Notes to Pharmacist: urea 400 MG/ML Topical CreamOriginal Medicationurea 400 MG/ML Topical Cream *Reorder from [facility] for eRx and Interaction Alerts*, Not-Taking Rosuvastatin Calcium 5 MG Tablet Oral , Medication List reviewed and reconciled with the patient * Allergies: A ugmentin: Allergy - Onset Date 10/30/2013. Objective: * Vitals: S hoe Size: 8.5, Wt: 132 lbs, Wt-k.87 kg, Ht: 65.00 in, Ht-cm: 165.10 cm, BMI: 21.96 Index, Body Surface Area: 1.66. * Examination: C onstitutional: Constitutional T he patient is awake, alert, well developed, well groomed and well nourished. D ermatologic: Skin findings: S kin is thin, atrophic and lacking pedal hair. Nail pathology: N ails 1, 2, 3, 4, and 5 bilateral are elongated, thick, discolored, and dystrophic with subungual debris. They are painful to palpation. ? V ascular: Dorsalis pedis pulse: 1 /4 b ilateral. Posterior tibial pulse: 0 /4 b ilateral. Capillary refill: g reater than 3 seconds. Edema: N o edema, bilateral. N eurologic: Gross sensation G ross sensation is intact to light touch.? M usculoskeletal: Muscle Strength M uscle strength is 5/5 in regards to dorsiflexion, plantarflexion, inversion, and eversion in bilateral lower extremities. ? Assessment: * Assessment: 1. T inea unguium - B35.1 (Primary) 2 . P ain in right toe(s) - M79.674? 3. P ain in left toe(s) - M79.675 4 . A therosclerosis of confederated salish arteries of extremities with intermittent claudication, bilateral legs - I70.213 Plan: * Treatment: * Preventive Medicine: Screenings: F all risk screening F all Risk Assessment: N o falls in the past year. * Follow Up: 1 0-12 Weeks (Reason: At Risk Foot care, sooner if problems arise) * Billing Information: * Visit Code: 52869 Office Visit, Est Pt., Level 3. * Procedure Codes: * Electronic signature of FERMIN STAPLES DPM on 02/27/2025 at 08:40 AM CDT Sign off status: Pending * Provider: Snehal Staples DPM Date: 0 02/09/2025 Generated for Luis hwang/Mihaela/Jesús on: 1 08:40 AM CDT History and Physical Notes * HPI (History of Present Illness) Category Sub-Category Detail Notes Category Not es HPI General care Patient presents to the office for at risk foot care. Patient states that their nails are thickened, elongated and painful. Patient states that it is aggravated by shoe gear. Onset is gradual. Patient denies being diabetic., Patient denies taking blood thinners., Date last seen by Dr. Izquierdo was September 2024., Initials IR sample Examination Category Sub-Category Detail Notes Category Not es Dermatologic Skin findings: Skin is thin, at rophic and lacking pedal hair Nail pathology: Nails 1, 2, 3, 4, an d 5 bilateral are elongated, thick, discolored, and dystrophic with subungual debris. They are painful to palpation Neurologic Gross sensation Gross sensation is intact to light touch Vascular Dorsalis pedis pulse: 1/4 bilateral Edema: No edema, bilateral Capillary refill: greater than 3 secon ds Posterior tibial pulse: 0/4 bilateral Musculoskeletal Muscle Strength Muscle strength is 5/5 in regards to dorsiflexion, plantarflexion, inversion, and eversion in bilateral lower extremities Constitutional Constitutional The patient is a wake, alert, well developed, well groomed and well nourished
--- NOTE | ~2025-02-27 | CT_ITS ---
EXAMINATION: CT abdomen pelvis w con DATE: 02/27/2025 09:17 INDICATION: Constipation. TECHNIQUE: Computed tomography (CT) of the abdomen and pelvis was performed with 100 mL Omnipaque 350 intravenous contrast. Automated exposure control and iterative reconstruction technique were employed. The dose-length product was 205.96 mGy-cm. COMPARISON: None. FINDINGS: The visualized portions of lung bases demonstrate mild atelectasis. No pleural effusion. The heart size is normal. No pericardial effusion. There are coronary artery calcifications. The liver and spleen are normal. There are changes of cholecystectomy. The pancreas and adrenal glands are normal. There are cysts in the kidneys measuring up to 7 mm on the left. There is a 2 mm stone in left kidney. There is diverticulosis of the colon without evidence of diverticulitis. There is a large volume of stool in the colon. There are no dilated loops of bowel. The appendix is normal. There are no pathologically enlarged lymph nodes. There is no free intraperitoneal fluid. There are changes of posterior fusion procedure from L4 to S1 and anterior fusion procedure at L5- S1. There is moderate lumbar spondylosis. IMPRESSION: 1. Large volume of stool in the colon. No obstruction. Reviewed, dictated and finalized at location E.
--- OUTSIDE RECORDS SUMMARY | 2025-02-27 08:41 | XMS_ITS | Patient Health Record ---
Author Organization [facility] Address [address] [place], [place] [address] Care Team Providers Care Meal Cooker Name Role Phone FERMIN STAPLES Unavailable [phone] Kavitha Izquierdo Unavailable Unavailable Allergies Allergen (clinical [...] Medicationurea 400 MG/ML Topical Cream *Reorder from [employer] for eRx and Interaction Alerts* 07/08/2014 Not-Taking Medrol Dosepak ORAL Medrol DosepakOriginal MedicationMedrol Dosepak *Reorder from [employer] for eRx and Interaction Alerts* 10/19/2021 Not-Taking [...] 5 MG Oral; Duration: 90 Days Not-Taking Immunizations Vaccine Route Administration Date Status Comme nts Pneumococcal conjugate PCV 13 Unknown 08/11/2024 Admini stered Vital Signs Height-cm 165.10 cm 02/09/2025 Weight-kg 59.87 kg 02/09/2025 Height 65.00 in 02/09/2025 Weight 132 lbs 02/09/2025 BMI 21.96 kg/m2 02/09/2025 Encounters Encounter Location Date Provider Diagnosis [facility] [place] [address] [place] [id number] 02/09/2025 FERMIN SNOOK Tinea unguium B35.1 ; Pain in right toe(s) M79.674 ; Pain in left toe(s) M79.675 and Atherosclerosis of eagle arteries of extremities with intermittent claudication, bilateral legs I70.213 [facility] [place] [facility] [address] [address] [place] [id number] 05/12/2024 FERMIN SNOOK Tinea unguium B35.1 ; Ingrowing nail L60.0 and Pain in right toe(s) M79.674 [facility] [place] [address] [place] [id number] 08/11/2024 FERMIN SNOOK Tinea unguium B35.1 ; Pain in right toe(s) M79.674 ; Pain in left toe(s) M79.675 and Atherosclerosis of eagle arteries of extremities with intermittent claudication, bilateral legs I70.213 [facility] [place] [facility] [address] [place] [id number] 11/10/2024 FERMIN SNOOK Tinea unguium B35.1 ; Pain in right toe(s) M79.674 ; Pain in left toe(s) M79.675 and Atherosclerosis of eagle arteries of extremities with intermittent claudication, bilateral legs I70.213 Assessments Encounter Date Diagnosis (ICD Code) Assessment Notes Treatment Notes Treatment Clinical Notes Section Notes 05/12/2024 Tinea unguium (ICD-10 - B35.1) FUNGAL [...] Pain in right toe(s) (ICD-10 - M79.674) 11/10/2024 Tinea unguium (ICD-10 - B35.1) FUNGAL TOENAILS: Discussed various treatment options for fungal toenails including debridement, topical antifungals, oral antifungals, toenail avulsion, or toenail matrixectomy. NAIL DEBRIDEMENT: Nails 1-5 Bilateral were debrided extensively with nail nippers and emery board, reducing length and girth to pink healthy tissue with any subungual debris and necrotic tissue removed 11/10/2024 Pain in right toe(s) (ICD-10 - M79.674) 02/09/2025 Tinea unguium (ICD-10 - B35.1) FUNGAL [...] Pain in left toe(s) (ICD-10 - M79.675) 11/10/2024 Pain in left toe(s) (ICD-10 - M79.675) 08/11/2024 Pain in left toe(s) (ICD-10 - M79.675) 05/12/2024 Pain in right toe(s) (ICD-10 - M79.674) 08/11/2024 Atherosclerosis of eagle arteries of extremities with intermittent claudication, bilateral legs (ICD-10 - I70.213) 11/10/2024 Atherosclerosis of eagle arteries of extremities with intermittent claudication, bilateral legs (ICD-10 - I70.213) 02/09/2025 Atherosclerosis of eagle arteries of extremities with intermittent claudication, bilateral legs (ICD-10 - I70.213) Plan Of Treatment Next Appt Details Provider Name:FERMIN STAPLES, 01:20:00 PM, [address], [facility], [place], [place], [id number], Insurance Providers Payer Name Payer Address Payer Phone Subscriber Number Group Number Insured Name Patient Relationship to Insured Coverage Start Date Coverage End Date [facility] [address] [address] [place] [address] [id number] BRENDEN RUIZ Self - patient is the insured Medical (General) History Medical History History ICD Code Back Trouble Thyroid Disease neuropathy Surgical History Surgery Date(Month/Year) spinal fusion 2013 Gall Bladder 2000
--- OUTSIDE RECORDS SUMMARY | 2025-02-27 08:41 | XMS_ITS | Clinical Summary ---
Author Organization [facility] Address [address] [place] [address] Care Team Providers Care Chain Carrier Name Role Phone Kavitha Izquierdo MD Primary Care Provider + Tony Colón MD Unavailable [phone] Allergies Active Allergy Reactions Criticality Noted Date Comments Amoxicillin-Pot Clavulanate Other (See comments) 01/14/2014 Reaction: YEAST INFECTION, Clarithromycin Cyclobenzaprine Hcl Unknown 11/13/2015 Piroxicam Hives Reaction: HIVES, Medications ALPRAZolam (XANAX) 0.25 mg tablet Take 1 tablet (0.25 mg total) by mouth nightly 5 8 Active levothyroxine (SYNTHROID) 50 mcg tablet Take 1 tablet (50 mcg total) by mouth prospect manager before breakfast Active amLODIPine (NORVASC) 5 mg [...] as needed for muscle spasms Active calcium-minera ec-U7-C8-silic on 200 mg calcium- 200 unit tablet [...] for it. There are a lot of dkgm-tvi-zkrpvpz remedies which generally do not help and [...] can quiet the tinnitus and there are edkf-kbc-lhzgvjh eardrops for this. I recommended possibly trying [...] 04/22/2023 Assessment & Plan (04/22/2023 6:33 PM MULTIMEDIA ENGINEER): I reassured her that her throat looks okay. There is some edema of the posterior larynx which I think is the lump that she feels. This is likely due to reflux. I do not find anything worrisome. She understands. Laryngopharyngeal reflux 04/22/2023 Assessment & Plan (04/22/2023 6:33 PM MULTIMEDIA ENGINEER): We discussed laryngopharyngeal reflux disease. It could [...] CT lumbar spine will be downloaded into [employer] and mailed back to the patient. IBS [...] Osteoporosis Sinusitis IBS (irritable bowel syndrome) Diabetes GERD (gastroesophageal reflux disease) Anxiety Depression Eczema [...] on file Legal Sex Female 12:00 AM MULTIMEDIA ENGINEER Gender Identity Not on file Sexual Orientation Not on file Obstetrics History Last Filed Vital Signs Vital Sign Reading Time Taken Comments Blood Pressure 185/68 07/12/2023 11:37 AM MULTIMEDIA ENGINEER Pulse 90 07/12/2023 11:37 AM MULTIMEDIA ENGINEER Temperature 35.3 C (95.6 F) 07/12/2023 11:37 AM MULTIMEDIA ENGINEER Respiratory Rate 18 01/23/2024 3:43 PM CDT Oxygen Saturation 96% 07/12/2023 11:37 AM MULTIMEDIA ENGINEER Inhaled Oxygen Concentration - - Weight 59.7 kg (131 lb 9.6 oz) 07/15/2024 12:35 PM MULTIMEDIA ENGINEER Height 165.1 cm (5' 5) 07/15/2024 12:35 PM MULTIMEDIA ENGINEER Body Mass Index 21.9 07/15/2024 12:35 PM MULTIMEDIA ENGINEER Plan of Treatment Health Maintenance Due Date Last Done Comments Hepatitis C Screening 1945 DTaP/Tdap/Td Vaccine (1 - Tdap) 1956 Hepatitis B Screening 1963 Zoster Vaccine (1 of 2) 1995 Well Visit 65+ 2010 Fall Risk Assessment 11/04/2020 11/05/2019 Depression Screening 02/22/2023 02/22/2022, 02/23/20 22 Influenza Vaccine (#1) 2025 , 01/23/2019, 02/25/2018, Additional history exists Osteoporosis Screening-Bone Density Scan 07/15/2026 07/15/2024, 06/20/2023, 01/03/2021, Additional history exists Pneumococcal vaccine 65+ Completed 023, 07/30/2018, 04/30/2017 Procedures Procedure Name Priority Date/Time Associated Diagnosis Comments DEXA TBS AXIAL SKELETON BONE DENSITY 1 OR MORE SITES Schedule Routine, Read Routine (OP Routine) 07/15/2024 12:38 PM MULTIMEDIA ENGINEER Age-related osteoporosis without current pathological fracture from Last 3 Months or Most Recently Relevant to Health Maintenance Results * Dexa TBS Axial Skeleton Bone Density 1 or more sites (07/15/2024 12:38 PM MULTIMEDIA ENGINEER) Anatomical Region Laterality Modality Wrist, Body N/A Radiographic Shirin ging Narrative 07/25/2024 2:42 PM MULTIMEDIA ENGINEER Patient Name: Estephania Ruiz Date of : 1945 Date of scan: 07/15/2024 Bone mineral density was performed on a Holo[employer]erd[employer] Discovery Densitometer. Based on machine cross-calibration and [...] by the International Society of Clinical Densitometry. [id number] Sheyla Deleon [facility] DXA PROCEDURES Final Result from Last 3 Months or Most Recently Relevant to Health Maintenance Insurance MEDICARE [facility] MEDICARE [facility] Address: [place] [id number] [facility] MEDICARE [facility] Address: [place] [address] Advance Directives For more information, please contact: [phone] * Full Code (Latest Code Status on File) Date Activated Date Inactivated Comments 11/03/2019 7:43 PM 11/05/2019 4:37 PM Care Teams Chain Carrier Relationship Specialty Start Date End Date Kavitha Izquierdo MD PCP - General Internal Medicine 09/25/18 [place]ón [place] [address] [place] [address] Consulting Physician Gastroenterology 11/05/19
--- OUTSIDE RECORDS SUMMARY | 2025-02-27 08:41 | XMS_ITS | Clinical Summary ---
Author Organization [facility] Address [address] [place] [address] Care Team Providers Care Damage Prevention Coordinator Name Role Phone Unavailable Primary Care Provider Unavailabl e Source Comments [facility],non-owned Affiliates and Associated Physician Practices is amultiple site organization consisting of ambulatory clinics and hospital sitesin [place], [place], [place] and [place]. This disclosure is being madepursuant to the Care Everywhere program and may not contain all information available regarding this patient. Last updated 18.[facility] [employer] Social History Tobacco Use Types Packs/Day Years [...] yrs (1 - 1-dose 75+ series) 2020 DEPRESSION SCREENING 05/28/2024 MEDICARE AWV CALENDAR YEAR 2024 COVID-19 VACCINE (1 - 2023-2 5 season) 2025 INFLUENZA VACCINE (#1) 2025 HEPATITIS B VACCINE Aged Out No [...] age to complete this topic [place] [phone] [employer] MANAGED MEDICARE ADV
--- OUTSIDE RECORDS SUMMARY | 2025-02-27 08:41 | XMS_ITS | Encounter Summary ---
Author Organization [facility] Address [address] [place] [address] Care Team Providers Care Cheese Production Supervisor Name Role Phone Unavailable Primary Care Provider Unavailabl e Encounter Details Date Type Department Care Team (Late st Contact Info) Description 10/23/2019 Lab Requisition [facility] [address] [place] [address] [place] [address] [place] [address] Social History Tobacco Use Types Packs/Day Years [...] AM CDT) Case Report Dermatopathology Report Case: [id number] Authorizing Provider: Radha Miranda MD Collected: 10/22/2019 12:00 AM Ordering Location: [facility] Received: 10/23/2019 09:42 AM Pathologist: [...] specimen consists of a shave biopsy measuring 5y6i8ts. Jar 0. 0 4:37 PM CDT DERMATOPATHOLOGY [...] characteristic determined by the Dermatopathology Laboratory at [facility], directed by Dr. Melissa Posey. These tests need not be, and therefore are not, approved by the [place] Food and Drug Administration. The tests are used for clinical purposes. Billing Codes Specimen Charges Stain Charges 87597 1 0 4:37 PM CDT DERMATOPATHOLOGY LABORATORY Embedded Images 0 4:37 PM CDT DERMATOPATHOLOGY LABORATORY Pathology/Cytolog y TISSUE SPECIMEN FROM SKIN / Unknown 10/22/2019 10/23/2019 9:42 AM CDT us Radha Miranda MD LAB - PATHOLOGY/CYTOLOGY ORDERABLES Final Result DERMATOPATHOLOGY LABORATORY [facility] - Department of Dermatology [employer] [place] [address], [facility] [phone] documented in this encounter Visit Diagnoses Not on filedocumented in this encounter
--- OUTSIDE RECORDS SUMMARY | 2025-02-27 08:41 | XMS_ITS | Encounter Summary ---
Author Organization [facility] Address [address] [place] [address] Phone Care Team Providers Care Portfolio Mgr Name Role Phone Kavitha Izquierdo MD Primary Care Provider + Tony Colón MD Unavailable [phone] Encounter Details Date Type Department Care Team (Late st Contact Info) Description 05/04/2022 Treatment [facility] [address] [facility] [address] [facility] [address] [place] [address] Sheyla Deleon, LEILANI [address] [facility] [address] [place] [address] Age-related osteoporosis without current pathological fracture (Primary [...] on file Legal Sex Female 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
--- OUTSIDE RECORDS SUMMARY | 2025-02-27 08:41 | XMS_ITS | Encounter Summary ---
Author Organization [facility] Address [address] [place] [address] Care Team Providers Care Construction Site Manager Name Role Phone Unavailable Primary Care Provider Unavailabl e Encounter Details Date Type Department Care Team (Late st Contact Info) Description 04/21/[address] [facility] DermPath Lab [address] [facility] [place] [address] Gómez Warren MD [address] [place] [address] Social History Tobacco Use Types [...] Comments DERMATOPATHOLOGY Routine 04/20/2020 12:0 0 AM CARE NURSE RN documented in this encounter Results * DERMATOPATHOLOGY (04/20/2020 12:00 AM CARE NURSE RN) Case Report Dermatopathology Report Case: [id number] Authorizing Provider: Gómez Warren MD Collected: 04/20/2020 12:00 AM Ordering Location: [facility] DermPath Lab Received: 04/21/2020 06:37 AM Pathologist: Mayela Simmons MD Specimen: Skin, lower back 0 4:42 PM CARE NURSE RN DERMATOPATHOLOGY LABORATORY Final Diagnosis Specimen A. SKIN, lower back: SPONGIOTIC DERMATITIS WITH EOSINOPHILS (L30.8) (see microscopic description and comment) 0 4:42 PM CARE NURSE RN DERMATOPATHOLOGY LABORATORY at 1642 CARE NURSE RN Clinical History ICD vs LSC vs other. Path#[id number] 0 4:42 PM CARE NURSE RN DERMATOPATHOLOGY LABORATORY Gross Description Specimen A: Received is one formalin filled container labeled with the patient's name and designated lower back. The specimen consists of a shave biopsy measuring 7x7x1 mm. Jar 0. 0 4:42 PM CARE NURSE RN DERMATOPATHOLOGY LABORATORY Microscopic Description Specimen A. SKIN, [...] phase of bullous pemphigoid. 0 4:42 PM [facility] DERMATOPATHOLOGY LABORATORY Disclaimer An external and internal positive and negative controls are appropriate for the histochemical, immunohistochemical and immunofluorescence stain(s) in this case (if any), except where stated explicitly. The performance characteristics of the stain(s) cited in this report were developed and its performance characteristic determined by the Dermatopathology Laboratory at [facility], directed by Dr. Melissa Posey. These tests need not be, and therefore are not, approved by the [place] Food and Drug Administration. The tests are used for clinical purposes. Billing Codes Specimen Charges Stain Charges 72250 1 63584 1 0 4:42 PM CARE NURSE RN DERMATOPATHOLOGY LABORATORY Embedded Images 0 4:42 PM CARE NURSE RN DERMATOPATHOLOGY LABORATORY Pathology/Cytolog y TISSUE SPECIMEN FROM SKIN / Unknown 04/20/2020 04/21/2020 6:37 AM CARE NURSE RN us Gómez Warren MD LAB - PATHOLOGY/CYTOLOGY ORDER [place] Final Result DERMATOPATHOLOGY LABORATORY [facility] - Department of Dermatology [address] [place] [address], [facility] [phone] documented in this encounter Visit Diagnoses Not on filedocumented in this encounter
--- OUTSIDE RECORDS SUMMARY | 2025-02-27 08:41 | XMS_ITS | Encounter Summary ---
Author Organization [facility] Address [address] [place] [address] Care Team Providers Care Solar Thermal Technician Name Role Phone Unavailable Primary Care Provider Unavailabl e Encounter Details Date Type Department Care Team (Late st Contact Info) Description 07/04/2023 Lab Requisition [facility] - Derm[facility] Lab [address] [place] [address] MD [address] [facility] [address] [place] [address] Social History Tobacco Use Types Packs/Day Years [...] Diagnosis Comments DERMATOPATHOLOGY Routine 07/04/2023 1:27 PM REMOTE SENSING TECHNICIAN documented in this encounter Results * DERMATOPATHOLOGY (07/04/2023 1:27 PM REMOTE SENSING TECHNICIAN) Case Report Dermatopathology Report Case: [id number] Authorizing Provider: Estephania Lane MD Collected: 07/04/2023 01:27 PM Ordering Location: [facility] DermPath Lab Received: 07/05/2023 01:17 PM Pathologist: May Alas MD Specimen: Skin, left chest 4 11:21 AM REMOTE SENSING TECHNICIAN DERMATOPATHOLOGY LABORATORY Final Diagnosis Specimen A. SKIN, left chest: BASAL CELL CARCINOMA, SUPERFICIAL MULTIFOCAL (C44.519) 4 11:21 AM REMOTE SENSING TECHNICIAN DERMATOPATHOLOGY LABORATORY at 1121 REMOTE SENSING TECHNICIAN Clinical History ISK vs SCC Irritated 11:21 AM [facility] DERMATOPATHOLOGY LABORATORY Gross Description Specimen A: Received is one formalin filled container labeled with the patient's name and designated left chest. The specimen consists of a shave biopsy measuring 5x4x1 mm. Jar 0. 11:21 AM [facility] DERMATOPATHOLOGY LABORATORY Microscopic Description Specimen A. SKIN, left chest: Attached to the undersurface of the epidermis, there are small aggregates of basaloid cells with a high nuclear to cytoplasmic ratio and peripheral palisading. 11:21 AM [facility] DERMATOPATHOLOGY LABORATORY Disclaimer An external and internal positive and negative controls are appropriate for the histochemical, immunohistochemical and immunofluorescence stain(s) in this case (if any), except where stated explicitly. The performance characteristics of the stain(s) cited in this report were developed and its performance characteristic determined by the Dermatopathology Laboratory at [facility], directed by Dr. Melissa Posey. These tests need not be, and therefore are not, approved by the [place] Food and Drug Administration. The tests are used for clinical purposes. Billing Codes Specimen Charges Stain Charges 00847 1 11:21 AM [facility] DERMATOPATHOLOGY LABORATORY Embedded Images 11:21 AM [facility] DERMATOPATHOLOGY LABORATORY Pathology/Cytolo gy TISSUE SPECIMEN FROM SKIN / Unknown 07/04/2023 1:27 PM REMOTE SENSING TECHNICIAN 07/05/2023 1:17 PM REMOTE SENSING TECHNICIAN Estephania Lane MD LAB - PATHOLOGY/CYTOLOGY OR DERABLES Final Result DERMATOPATHOLOGY LABORATORY [facility] - Department of Dermatology [address] [place] [address], [facility] [phone] documented in this encounter Visit Diagnoses Not on filedocumented in this encounter
[2025-02-27 09:07] LABS: Estimated Glomerular Filt Rate 60
== END 2025-02-27 08:33 | disposition home or self-care (01) ==
PROVIDERS: PCP Internal Medicine
DX: K59.00 Constipation, unspecified (principal); R14.0 Abdominal distension (gaseous); R63.0 Anorexia; R10.13 Epigastric pain
CPT/HCPCS: 74177; Q9967